=== PATIENT | female | born 1970 | race Two or more races ===

== ENCOUNTER 2018-09-10 18:51 | Emergency (ER) | payer BC ==
[~2018-09-10] VITALS: Ht 167.6 cm; Wt 99.8 kg
== END 2018-09-10 21:43 | disposition home or self-care (01) ==
LOC: ER 18:51
DX: M25.511 Pain in right shoulder (principal)

== ENCOUNTER 2018-11-17 19:56 | Emergency (ER) | payer OTHER ==
[~2018-11-17] VITALS: Ht 167.6 cm; Wt 106.6 kg
== END 2018-11-17 22:09 | disposition home or self-care (01) ==
LOC: ER 19:56
DX: S40.011A Contusion of right shoulder, initial encounter (principal); S60.211A Contusion of right wrist, initial encounter; S50.01XA Contusion of right elbow, initial encounter; S70.11XA Contusion of right thigh, initial encounter; R51 Headache; W18.09XA Striking against other object with subsequent fall, initial encounter; Y93.89 Activity, other specified; Y92.89 Other specified places as the place of occurrence of the external cause; Y99.8 Other external cause status

== ENCOUNTER 2018-12-02 21:05 | Emergency (ER) | payer BC ==
[~2018-12-02] VITALS: Ht 167.6 cm; Wt 108.9 kg
== END 2018-12-02 22:22 | disposition home or self-care (01) ==
LOC: ER 21:05
DX: B34.9 Viral infection, unspecified (principal)